=== PATIENT | female | born 1945 | race African-American/Black ===

== ENCOUNTER 2019-03-26 09:25 | Inpatient (IN) | payer MEDICARE, BC ==
[~2019-03-26] VITALS: Ht 162.6 cm; Wt 96.0 kg
[2019-03-26] MEDS ORDERED: HEPARIN SODIUM 1,000 UNIT/1ML VIAL IV ONE (10:00)
[2019-03-26] MEDS ORDERED: MULT-1146 MT (10:32)
[2019-03-26] MEDS ORDERED: TRAM50TA3 PO (10:32)
[2019-03-26] MEDS ORDERED: LORA10TA64 PO (10:32)
[2019-03-26] MEDS ORDERED: FLOV44 INH (10:32)
[2019-03-26] MEDS ORDERED: TRAM50TA3 MT (10:32)
[2019-03-26] MEDS ORDERED: ASPI-1393 MT (10:32)
[2019-03-26] MEDS ORDERED: TAP5 MT (10:32)
[2019-03-26] MEDS ORDERED: RANI-655 PO (10:32)
[2019-03-26] MEDS ORDERED: Tumeric PO (10:32)
[2019-03-26] MEDS ORDERED: ALBU90AE INH (10:32)
[2019-03-26] MEDS ORDERED: LOSA1TAB34 MT (10:32)
[2019-03-26] MEDS ORDERED: ATEN50TA MT (10:32)
[2019-03-26] MEDS ORDERED: LIDOCAINE HCL 1% 20ML VIAL (Pyxis) INJ ONE (10:50)
[2019-03-26] MEDS ORDERED: IODIXANOL 320MG/ML 100 ML BOTTLE IV ONE (10:50)
[2019-03-26] MEDS ORDERED: FENTANYL CITRATE/PF 50MCG/ML 2ML VIAL ONE (10:51)
[2019-03-26] MEDS ORDERED: MIDAZOLAM HCL 2 MG/2 ML VIAL ONE (10:51)
[2019-03-26] MEDS ORDERED: IOHEXOL-300 100 ML BOTTLE ONE (12:16)
[2019-03-26] MEDS ORDERED: CLOPIDOGREL 75MG TABLET ONE (12:32)
[2019-03-26] MEDS ORDERED: ASPIRIN 325MG EC TABLET PO ONE (12:32)
[2019-03-26] MEDS ORDERED: ACETAMINOPHEN 325MG TABLET PO PRN ×2 (12:45)
[2019-03-26] MEDS ORDERED: ATROPINE SULFATE 1MG/10ML SYR IV PRN (12:45)
[2019-03-26] MEDS ORDERED: ZOLPIDEM TARTRATE 5MG TABLET PO PRN (12:45)
[2019-03-26] MEDS ORDERED: CLONIDINE 0.1MG TABLET PO PRN (13:15)
[2019-03-26] MEDS ORDERED: ONDANSETRON HCL 4MG/2ML INJ IV PRN (13:15)
[2019-03-26] MEDS ORDERED: MAGNESIUM/ALUMINUM HYDROXIDE/SIMETHICONE 30ML UDC PO PRN (13:15)
[2019-03-26] MEDS ORDERED: IPRATROPIUM/ALBUTEROL 0.5-3(2.5)MG/3ML NEB HHN PRN (13:15)
[2019-03-26] MEDS ORDERED: DIPHENHYDRAMINE 50MG/ML VIAL IV PRN (13:15)
[2019-03-26 13:17] VITALS: BP 153/89
[2019-03-26 13:29] VITALS: BP 153/89
[2019-03-26] MEDS: LOSARTAN POTASSIUM 50 MG TABLET PO SCH (15:01)
[2019-03-26] MEDS: ATENOLOL 50 MG TABLET PO SCH (15:01)
[2019-03-26] MEDS: FAMOTIDINE 20MG TABLET PO SCH ×2 (15:01→21:04)
[2019-03-26 15:54] LABS: PHOSPHORUS 3.3 mg/dL (2.5-4.9)
[2019-03-26 16:00] VITALS: BP 163/71
[2019-03-26 18:00] VITALS: BP 151/77
[2019-03-26 20:00] VITALS: BP 128/66
[2019-03-26] MEDS ORDERED: ATORVASTATIN CALCIUM 20MG TABLET PO SCH (21:00)
[2019-03-26 22:00] VITALS: BP 141/70
[2019-03-27] VITALS (9 sets, daily range): BP systolic 93–183; BP diastolic 55–90
[2019-03-27 06:22] LABS: CHLORIDE 104 mEq/L (98-107)
[2019-03-27 06:30] LABS: BASOPHILS % 0.4 % (0.0-2.0); EOSINOPHILS % 2.1 % (0.0-5.0); HEMATOCRIT. 40.9 % (36.0-48.0); HEMOGLOBIN. 13.3 g/dL (12.0-16.0); LYMPHOCYTES % 26.4 % (20.0-50.0); MEAN CORPUSCULAR HEMOGLOBIN 27.1 pg (28.0-32.0); MEAN CORPUSCULAR VOLUME 82.9 fL (81.0-99.0); MEAN PLATELET VOLUME 7.8 fl (7.4-10.4); MONOCYTES % 5.3 % (2.0-8.0); NEUTROPHILS % 65.8 % (40.0-76.0); PLATELET 307 x1000/uL (130-400); RED BLOOD CELL COUNT 4.93 mill/uL (4.2-5.4); RED CELL DISTRIBUTION WIDTH 15.7 % (11.6-14.6)
[2019-03-27 06:31] LABS: LDL CHOLESTEROL 91 mg/dL (5-100)
[2019-03-27 06:33] LABS: HDL CHOLESTEROL 52 mg/dL (40-59)
[2019-03-27] MEDS: FAMOTIDINE 20MG TABLET PO SCH (08:23)
[2019-03-27] MEDS: ATENOLOL 50 MG TABLET PO SCH (08:24)
[2019-03-27] MEDS: LOSARTAN POTASSIUM 50 MG TABLET PO SCH (08:24)
[2019-03-27] MEDS ORDERED: CLOPIDOGREL 75MG TABLET PO SCH (09:00)
[2019-03-27] MEDS ORDERED: ASPIRIN 325MG EC TABLET PO SCH (09:00)
== END 2019-03-27 15:25 | disposition home or self-care (01) | DRG 247 ==
LOC: CCL 09:25 → 3WST 09:26
PROVIDERS: ADMIT Specialist; ATTEND Specialist
PROC: 027034Z Dilation of Coronary Artery, One Artery with Drug-eluting Intraluminal Device, Percutaneous Approach (ICD-10-PCS; principal; 2019-03-26)
PROC: 4A023N7 Measurement of Cardiac Sampling and Pressure, Left Heart, Percutaneous Approach (ICD-10-PCS; 2019-03-26)
PROC: B2111ZZ Fluoroscopy of Multiple Coronary Arteries using Low Osmolar Contrast (ICD-10-PCS; 2019-03-26)
DX: I25.10 Atherosclerotic heart disease of native coronary artery without angina pectoris (principal); M19.90 Unspecified osteoarthritis, unspecified site; I10 Essential (primary) hypertension; E03.9 Hypothyroidism, unspecified; J45.909 Unspecified asthma, uncomplicated; K21.9 Gastro-esophageal reflux disease without esophagitis; Z90.49 Acquired absence of other specified parts of digestive tract; Z79.899 Other long term (current) drug therapy; Z79.51 Long term (current) use of inhaled steroids; Z98.51 Tubal ligation status; Z79.82 Long term (current) use of aspirin
CPT/HCPCS: 36415; 80048; 80061; 83735; 84100; 84443; 84484; 85347; 92928; 93005; 93458; 93970; C1769; C1874; C1887; C1893; J1644; J2250; J3010; J3490; Q9967